=== PATIENT | male | born 1965 | race Caucasian/White ===

== ENCOUNTER 2018-07-19 17:04 | Inpatient (IN) | payer BC ==
[2018-07-19 17:04] VITALS: BMI 27.6
[2018-07-19] MEDS ORDERED: Nitroglycerin 2% Ointment Foilpak UD TOP STA (17:24)
[2018-07-19] MEDS ORDERED: Aspirin 325 mg EC Tablets PO STA (17:24)
--- NOTE | 2018-07-19 17:24 | C.PDOC ---
History Of Present Illness 53 y/o male with PMHx of HTN and hypercholesterolemia presents to the ED with new onset chest pain ongoing for 2-3 days. Initially patient states pain was intermittent, worsened with exertion, and resolved with rest. Today the pain is more persistent and intense. Currently chest pain is improve but still present. Otherwise patient denies MCMULLEN, SOB, palpitations, dizziness, sweats, leg swelling or tingling. Denies hx of prior chest pain episodes or known cardiac problems. States he is compliant with all medications. PMD: Casey Morales Time Seen by Provider: 07/19/18 17:18 Chief Complaint (Nursing): Chest Pain History Per: Patient History/Exam Limitations: no limitations Onset/Duration Of Symptoms: Days Current Symptoms Are (Timing): Still Present Exacerbating Factors: Exertion Past Medical History Reviewed: Historical Data, Nursing Documentation, Vital Signs Vital Signs: Last Vital Signs Temp 98.7 F 07/19/18 17:10 Pulse 79 07/19/18 17:10 Resp 18 07/19/18 17:10 BP 119/73 07/19/18 17:10 Pulse Ox 100 07/19/18 18:10 - Medical History PMH: HTN, Hypercholesterolemia Surgical History: Cholecystectomy - [facility] Procedures EXCIS LES TENDON SHEATH (02/02/14) Family History: States: No Known Family Hx - Social History Hx Tobacco Use: No (former) Hx Alcohol Use: Yes Hx Substance Use: No Review Of Systems Except As Marked, All Systems Reviewed And Found Negative. Constitutional: Negative for: Fever, Chills, Sweats Eyes: Negative for: Vision Change Cardiovascular: Positive for: Chest Pain. Negative for: Palpitations Respiratory: Negative for: Shortness of Breath, SOB with Excertion Gastrointestinal: Negative for: Nausea, Vomiting Musculoskeletal: Negative for: Leg Pain (or swelling) Neurological: Negative for: Weakness, Numbness, Headache, Dizziness Physical Exam - Physical Exam Appears: Non-toxic, No Acute Distress Skin: Normal Color, Warm, Dry Head: Atraumatic, Normacephalic Eye(s): bilateral: Normal Inspection, PERRL, EOMI Nose: Normal Oral Mucosa: Moist Neck: Supple Chest: Symmetrical, No Deformity, No Tenderness Cardiovascular: Rhythm Regular, No Murmur Respiratory: Normal Breath Sounds, No Rales, No Rhonchi, No Wheezing, Other ( NARD) Gastrointestinal/Abdominal: Soft, No Tenderness, No Distention Extremity: Bilateral: Atraumatic, Normal Color And Temperature, Normal ROM Pulses: Left Radial: Normal, Right Radial: Normal Neurological/Psych: Oriented x3, Normal Speech, Normal Cranial Nerves Gait: Steady ED Course And Treatment - Laboratory Results Result Diagrams: 07/19/18 17:37 07/19/18 17:37 ECG: Interpreted By Me ECG Rhythm: Sinus Rhythm Interpretation Of ECG: TWI III Rate From EC O2 Sat by Pulse Oximetry: 100 (RA) Pulse Ox Interpretation: Normal Progress - Re-Evaluation Re-evaluation Note: 07/19/18 18:08 VSS NAD. D/W P BAZZI CF PMD STATES TO ADMIT DR HUFF - Data Reviewed Data Reviewed: Lab, Diagnostic imaging, EKG, Old records Medical Decision Making Medical Decision Making: Impression: Chest pain, r/o ACS Initial Plan: --EKG --Troponin I --CMP --CBC --PTT/PT --Chest X-Ray --NTG 2% TOP --Aspirin 325 mg PO Disposition Counseled Patient/Family Regarding: Studies Performed, Diagnosis - Disposition Disposition: HOSPITALIZED Disposition Time: 18:09 Condition: STABLE Forms: [employer] (Luxembourgish) - POA Present On Arrival: None - Clinical Impression Clinical Impression: Unstable angina - Scribe Statement The provider has reviewed the documentation as recorded by the Jeyson Hilario Provider Attestation: All medical record entries made by the Rositaibe were at my direction and personally dictated by me. I have reviewed the chart and agree that the record accurately reflects my personal performance of the history, physical exam, medical decision making, and the department course for this patient. I have also personally directed, reviewed, and agree with the discharge instructions and disposition. Decision To Admit - Pt Status Changed To: Hospital Disposition Of: Inpatient - Admit Certification Admit to Inpatient:: After my assessment, the patient will require hospitalization for at least two midnights. This is because of the severity of symptoms shown, intensity of services needed, and/or the medical risk in this patient being treated as an outpatient. - InPatient: Physician Admission Certification: I certify that this patient requires 2 or more midnights of care for the following reason:: SEE NOTE - . Bed Request Type: Telemetry Admitting Physician: Ammon Huff Patient Diagnosis: Unstable angina
[2018-07-19 17:40] LABS: BASO % 0.7 % (0.0-2.0); EOS # 0.1 K/uL (0.0-0.7); EOS % 2.2 % (0.0-4.0); LYMPH # 1.6 K/uL (1.0-4.3); LYMPH % 32.8 % (20.0-40.0); MEAN CORPUSCULAR HEMOGLOBIN 29.3 pg (27.0-31.0); MEAN CORPUSCULAR HGB CONC 34.3 g/dL (33.0-37.0); MEAN PLATELET VOLUME 7.1 fL (7.2-11.7); MONO # 0.6 K/uL (0.0-0.8); MONO % 11.3 % (0.0-10.0); NEUT # 2.7 K/uL (1.8-7.0); RBC 4.08 Mil/uL (4.40-5.90); RED CELL DISTRIBUTION WIDTH 14.2 % (11.5-14.5)
[2018-07-19 17:42] LABS: MEAN CELL VOLUME 85.5 fL (80.0-94.0)
[2018-07-19 17:48] LABS: INR 1.2; PROTHROMBIN TIME 13.6 SECONDS (9.7-12.2)
[2018-07-19 17:57] LABS: ALB/GLOB RATIO 1.5 (1.0-2.1); ALBUMIN 4.6 g/dL (3.5-5.0); ALT/SGPT 29 U/L (21-72); AST/SGOT 24 U/L (17-59); BLOOD UREA NITROGEN 27 mg/dL (9-20); CALCIUM 9.2 mg/dl (8.6-10.4); GFR NON-AFRICAN AMERICAN > 60
[2018-07-19] MEDS ORDERED: Aspirin 325 mg EC Tablets PO ONE (18:05)
[2018-07-19] MEDS ORDERED: Nitroglycerin 2% Ointment Foilpak UD TOP ONE (18:06)
[2018-07-19] MEDS ORDERED: Enoxaparin 40 mg Syringe SC STA (18:09)
[2018-07-19] MEDS ORDERED: Enoxaparin 80 mg Syringe ONE (18:44)
--- NOTE | 2018-07-19 20:54 | CP.PCM.HP ---
<Ammon Huff P - Last Filed: 07/19/18 21:04> Meds Allergies/Adverse Reactions: Allergies Allergy/AdvReac Type Severity Reaction Status Date / Time No Known Allergies Allergy Verified 07/19/18 17:13 Results - Vital Signs Recent Vital Signs: Last Vital Signs Temp 98.4 F 07/19/18 20:47 Pulse 71 07/19/18 20:47 Resp 18 07/19/18 20:47 BP 118/72 07/19/18 20:47 Pulse Ox 97 07/19/18 20:47 - Labs Result Diagrams: 07/19/18 17:37 07/19/18 17:37 Labs: Laboratory Results - last 24 hr 07/19/18 07/19/18 07/19/18 17:37 17:37 17:37 WBC 5.0 RBC 4.08 L Hgb 12.0 Hct 34.9 L MCV 85.5 D MCH 29.3 MCHC 34.3 RDW 14.2 Plt Count 259 MPV 7.1 L Neut % (Auto) 53.0 Lymph % (Auto) 32.8 Gregg % (Auto) 11.3 H Eos % (Auto) 2.2 Baso % (Auto) 0.7 Neut # (Auto) 2.7 Lymph # (Auto) 1.6 Gregg # (Auto) 0.6 Eos # (Auto) 0.1 Baso # (Auto) 0.0 PT 13.6 H INR 1.2 APTT 31 Sodium 143 Potassium 3.7 Chloride 102 Carbon Dioxide 29 Anion Gap 15 BUN 27 H Creatinine 1.2 Est GFR ( Amer) > 60 Est GFR (Non-Af Amer) > 60 Random Glucose 114 H Calcium 9.2 Total Bilirubin 0.7 AST 24 ALT 29 Alkaline Phosphatase 53 Troponin I < 0.0120 Total Protein 7.6 Albumin 4.6 Globulin 3.0 Albumin/Globulin Ratio 1.5 Attending/Attestation - Attestation I have personally seen and examined this patient.: Yes I have fully participated in the care of the patient.: Yes I have reviewed all pertinent clinical information: Yes Notes (Text): 07/19/18 21:04 Chest pain not clearly related with exertion, was present about 6 hrs prior to presentation with negative trop and negative ekg at time of presentation but patient still having symptoms in ER, no worsening of pain with exertion today as per the patient, at the time of exam not sob, no pain, no tenderness, vitals stable. As per records in 2016 had positive exercise stress test, with reversible ischemia in inferior leads, as per the patient [place] [facility] and didn't need any intervention. Assessment Atypical CP, dd of gerd Plan Serial trop Records [place] [facility] about prior cath. See orders for detail DC nitro paste. Home meds to continue. <Harley Ling - Last Filed: 07/19/18 22:07> History of Present Illness - History of Present Illness History of Present Illness: PGY2 Medicine H+P for Dr. Huff A 53 year old male with a PMHx of HTN, GERD, and hypercholesterolemia presents to the ED with a complaint of chest pain. Patient woke up this morning chest pain free. After walking down 3 flights of stairs he started to experience a burning sensation substernally/epigastric region. He decided to walk back up stairs, without needing to stop to rest, and sat back down. The chest pain did not improve with rest so he decided to come into the emergency room for further evaluation. Patient has been experiencing intermittent chest pain for the past three days. The chest pain does not radiate and denies nausea, vomiting, diaphoresis, numbness or tingling. Patient has no other complaints at this time. Patient denies fevers, chills, fatigue, weakness, headaches, tachycardia, dyspnea, wheezing, sputum production, diarrhea, and sensory changes in his extremities. PMD: Dr. Morales PMH: HTN, GERD, and hypercholesterolemia PSH: cholecystectomy, abnormal stress test (2016), cardiac cath (2016 - normal per patient, will attempt to get records [place] [facility] Family: father at 92, mother living, no extensive cardiac history Social: denies tobacco, social alcohol and denies illicit drug use Allergies: NKDA Present on Admission - Present on Admission Any Indicators Present on Admission: No Review of Systems - Review of Systems All systems: reviewed and no additional remarkable complaints except - Constitutional Constitutional: As Per HPI - EENT Eyes: As Per HPI Ears: As Per HPI Nose/Mouth/Throat: As Per HPI - Cardiovascular Cardiovascular: As Per HPI - Respiratory Respiratory: As Per HPI - Gastrointestinal Gastrointestinal: As Per HPI - Genitourinary Genitourinary: As Per HPI - Musculoskeletal Musculoskeletal: As Per HPI - Integumentary Integumentary: As Per HPI - Neurological Neurological: As Per HPI - Psychiatric Psychiatric: As Per HPI - Endocrine Endocrine: As Per HPI - Hematologic/Lymphatic Hematologic: As Per HPI Past Patient History - Past Medical History & Family History Past Medical History?: Yes - Past Social History Smoking Status: Former Smoker - CARDIAC Hx Hypercholesterolemia: Yes Hx Hypertension: Yes - PSYCHIATRIC Hx Substance Use: No - SURGICAL HISTORY Hx Cholecystectomy: Yes - ANESTHESIA Hx Anesthesia: Yes Hx Anesthesia Reactions: No Hx Malignant Hyperthermia: No Physical Exam - Constitutional Appears: Non-toxic, No Acute Distress - Head Exam Head Exam: ATRAUMATIC, NORMOCEPHALIC - Eye Exam Eye Exam: EOMI, Normal appearance, PERRL Pupil Exam: NORMAL ACCOMODATION, PERRL - ENT Exam ENT Exam: Mucous Membranes Moist - Neck Exam Neck exam: Negative for: Lymphadenopathy - Respiratory Exam Respiratory Exam: Clear to Auscultation Bilateral, NORMAL BREATHING PATTERN. absent: Accessory Muscle Use, Rales, Rhonchi, Wheezes, Respiratory Distress - Cardiovascular Exam Cardiovascular Exam: REGULAR RHYTHM, RRR, +S1, +S2. absent: Gallop, JVD, Rubs - GI/Abdominal Exam GI & Abdominal Exam: Normal Bowel Sounds, Soft. absent: Distended, Firm, Guarding, Rebound, Rigid, Tenderness - Extremities Exam Extremities exam: Positive for: normal capillary refill, normal inspection, pedal pulses present. Negative for: calf tenderness, pedal edema - Back Exam Back exam: FULL ROM, NORMAL INSPECTION. absent: CVA tenderness (L), CVA tenderness (R), muscle spasm, paraspinal tenderness, tenderness, vertebral tenderness - Neurological Exam Neurological exam: Alert, Oriented x3 - Psychiatric Exam Psychiatric exam: Normal Affect, Normal Mood - Skin Skin Exam: Dry, Warm Results - Vital Signs Recent Vital Signs: Last Vital Signs Temp 98.7 F 07/19/18 17:10 Pulse 77 07/19/18 17:15 Resp 18 07/19/18 17:10 BP 112/73 07/19/18 17:15 Pulse Ox 100 07/19/18 18:15 - Labs Result Diagrams: 07/19/18 17:37 07/19/18 17:37 Labs: Laboratory Results - last 24 hr 07/19/18 07/19/18 07/19/18 17:37 17:37 17:37 WBC 5.0 RBC 4.08 L Hgb 12.0 Hct 34.9 L MCV 85.5 D MCH 29.3 MCHC 34.3 RDW 14.2 Plt Count 259 MPV 7.1 L Neut % (Auto) 53.0 Lymph % (Auto) 32.8 Gregg % (Auto) 11.3 H Eos % (Auto) 2.2 Baso % (Auto) 0.7 Neut # (Auto) 2.7 Lymph # (Auto) 1.6 Gregg # (Auto) 0.6 Eos # (Auto) 0.1 Baso # (Auto) 0.0 PT 13.6 H INR 1.2 APTT 31 Sodium 143 Potassium 3.7 Chloride 102 Carbon Dioxide 29 Anion Gap 15 BUN 27 H Creatinine 1.2 Est GFR ( Amer) > 60 Est GFR (Non-Af Amer) > 60 Random Glucose 114 H Calcium 9.2 Total Bilirubin 0.7 AST 24 ALT 29 Alkaline Phosphatase 53 Troponin I < 0.0120 Total Protein 7.6 Albumin 4.6 Globulin 3.0 Albumin/Globulin Ratio 1.5 Assessment & Plan - Assessment and Plan (Free Text) Plan: Atypical Chest Pain r/o ACS ECHO 05/08/16: normal EF, borderline to mild concentric LVH, Abnormal Exercise Stress Test on 05/08/16 * [place] [facility] which per patient was normal. * Will attempt to get records from [facility]. CXR 07/19/18: no acute disease EKG 07/19/18: NSR @87bpm, normal axis, no acute ST wave changes. * f/u repeat EKG Trop <0.0120; f/u JORGE q6h x2 Lipid Panel pending TSH/free T4 pending Hgb A1c pending Medications: * Aspirin 81mg PO daily * Zofran 4mg IVP q6h prn GERD Continue home medications * Protonix 40mg PO daily Hypertension controlled continue to monitor Continue home medications * Edarbyclor 40-12.5mg PO daily h/o Hypercholesterolemia Lipid Panel pending * will start treatment pending results Prophylactic Care Lovenox 40mg SC daily Protonix 40mg PO daily Case discussed with Dr. Refugio Souza Sushil PGY2
[2018-07-20 00:32] VITALS: RESP 20
[2018-07-20 01:03] LABS: CK-MB 0.94 ng/mL (0.0-3.38)
[2018-07-20 07:42] LABS: BASO % 0.7 % (0.0-2.0); EOS # 0.2 K/uL (0.0-0.7); HEMOGLOBIN 11.4 g/dL (12.0-18.0); LYMPH # 1.8 K/uL (1.0-4.3); MEAN CELL VOLUME 84.4 fL (80.0-94.0); MEAN CORPUSCULAR HEMOGLOBIN 29.5 pg (27.0-31.0); MEAN PLATELET VOLUME 7.6 fL (7.2-11.7); MONO # 0.5 K/uL (0.0-0.8); MONO % 10.5 % (0.0-10.0); NEUT # 2.1 K/uL (1.8-7.0); NEUT % 45.8 % (50.0-75.0); RBC 3.85 Mil/uL (4.40-5.90); RED CELL DISTRIBUTION WIDTH 14.5 % (11.5-14.5); WHITE BLOOD COUNT 4.6 K/uL (4.8-10.8)
[2018-07-20 08:17] LABS: ALB/GLOB RATIO 1.5 (1.0-2.1); ALBUMIN 4.1 g/dL (3.5-5.0); ALT/SGPT 30 U/L (21-72); AST/SGOT 22 U/L (17-59); BLOOD UREA NITROGEN 23 mg/dL (9-20); CALCIUM 9.2 mg/dl (8.6-10.4); GFR NON-AFRICAN AMERICAN > 60; HDL CHOLESTEROL 31 mg/dL (30-70)
[2018-07-20 08:24] LABS: CK-MB 1.75 ng/mL (0.0-3.38)
[2018-07-20 08:28] LABS: LDL CHOLESTEROL 98 mg/dL (0-129)
[2018-07-20] MEDS: Enoxaparin 40 mg Syringe SC SCH (09:04)
[2018-07-20] MEDS: Omega-3-Acid Ethyl Esters 1 GM Cap PO SCH ×2 (09:04→17:06)
[2018-07-20] MEDS: Pantoprazole 40 mg EC Tab PO SCH (09:04)
[2018-07-20] MEDS ORDERED: Midazolam 2 MG/2 ML VIAL ONE (09:55)
[2018-07-20] MEDS ORDERED: CHLORTHALIDONE PO SCH (10:00)
[2018-07-20] MEDS ORDERED: Ergocalciferol 50,000 Intl Units Cap PO SCH (10:00)
[2018-07-20] MEDS ORDERED: AZILSARTAN MED PO SCH (10:00)
--- NOTE | 2018-07-20 10:13 | RAD ---
Date of service: 07/19/2018 HISTORY: chest pain COMPARISON: Chest radiographs 07/19/2018. TECHNIQUE: Chest PA and lateral FINDINGS: LUNGS: No acute infiltrates bilaterally. Flattened hemidiaphragms are again reiterated with mild hyperlucency suggesting probable COPD. Clinically correlate further. Limited fibrotic changes reiterated right base. PLEURA: No significant pleural effusion identified. No pneumothorax apparent. CARDIOVASCULAR: Normal. OSSEOUS STRUCTURES: No significant abnormalities. VISUALIZED UPPER ABDOMEN: Normal. OTHER FINDINGS: None. IMPRESSION: Likely COPD reiterated. No acute cardiopulmonary disease appreciable in the interval.
--- NOTE | 2018-07-20 19:10 | CP.PCM.PN ---
<Davion Correia - Last Filed: 07/20/18 19:07> Subjective - Date & Time of Evaluation Date of Evaluation: 07/20/18 Time of Evaluation: 19:08 - Subjective Subjective: PGY-[address] Del Toro Patient seen and examined at bedside. No acute events overnight. Patient tolerating PO meals. Patient still complaining of burning/pressing subxiphoid chest pain. He denies any association with eating certain foods. Patient has no other complaints at this time. Plan to D/C tomorrow if no new complications arise. Objective - Vital Signs/Intake and Output Vital Signs (last 24 hours): Temp Pulse Resp BP Pulse Ox 97.9 F 61 20 120/73 96 07/20/18 16:00 07/20/18 16:00 07/20/18 16:00 07/20/18 16:00 07/20/18 16:00 - Medications Medications: Current Medications Acetaminophen (Tylenol 325mg Tab) 650 mg PO Q6 PRN PRN Reason: pain 4-7,fever>100.4 Last Admin: 07/20/18 07:48 Dose: 650 mg Aspirin (Ecotrin) 81 mg PO DAILY COUNT INCLUDES THE [facility] Last Admin: 07/20/18 09:04 Dose: 81 mg Chlorthalidone (Hygroton) 25 mg PO DAILY COUNT INCLUDES THE [facility] Enoxaparin Sodium (Lovenox) 40 mg SC DAILY COUNT INCLUDES THE [facility] Last Admin: 07/20/18 09:04 Dose: 40 mg Ergocalciferol (Drisdol 50,000 Intl Units Cap) 1 cap PO QWK COUNT INCLUDES THE [facility] Last Admin: 07/20/18 09:04 Dose: 1 cap Losartan Potassium (Cozaar) 50 mg PO DAILY COUNT INCLUDES THE [facility] Eulio-1-Runz Ethyl Esters (Lovaza) 1 gm PO BID COUNT INCLUDES THE [facility] Last Admin: 07/20/18 17:06 Dose: 1 gm Ondansetron HCl (Zofran Inj) 4 mg IVP Q6 PRN PRN Reason: Nausea/Vomiting Pantoprazole Sodium (Protonix Ec Tab) 40 mg PO DAILY COUNT INCLUDES THE [facility] Last Admin: 07/20/18 09:04 Dose: 40 mg Pneumococcal Polyvalent Vaccine (Pneumovax 23 Vaccine) 0.5 ml IM .ONCE ONE Stop: 07/21/18 10:01 - Labs Labs: 07/20/18 07:14 07/20/18 07:14 PT 13.6 SECONDS (9.7-12.2) H 07/19/18 17:37 INR 1.2 07/19/18 17:37 APTT 31 SECONDS (21-34) 07/19/18 17:37 - Constitutional Appears: Well, Non-toxic, No Acute Distress - Head Exam Head Exam: ATRAUMATIC, NORMAL INSPECTION - Eye Exam Eye Exam: EOMI, Normal appearance Pupil Exam: NORMAL ACCOMODATION - ENT Exam ENT Exam: Mucous Membranes Moist - Respiratory Exam Respiratory Exam: NORMAL BREATHING PATTERN - Cardiovascular Exam Cardiovascular Exam: REGULAR RHYTHM, +S1, +S2 - GI/Abdominal Exam GI & Abdominal Exam: Soft, Normal Bowel Sounds. absent: Tenderness, Rebound - Extremities Exam Extremities Exam: Full ROM, Normal Capillary Refill, Normal Inspection - Neurological Exam Neurological Exam: Alert, Awake, CN II-XII Intact, Normal Gait, Oriented x3 - Psychiatric Exam Psychiatric exam: Normal Affect, Normal Mood - Skin Skin Exam: Dry, Intact, Normal Color, Warm Assessment and Plan - Assessment and Plan (Free Text) Assessment: Atypical Chest Pain r/o ACS ECHO 05/08/16: normal EF, borderline to mild concentric LVH, Abnormal Exercise Stress Test on 05/08/16 * Patient cardiac cath at [facility] [place], which per patient was normal. * Will attempt to get records from [facility] [place] in morning. CXR 07/19/18: no acute disease EKG 07/19/18: NSR @87bpm, normal axis, no acute ST wave changes. * f/u repeat EKGs both showed normal axis, no acute ST wave changes. JORGE q6 NEGATIVE x3 Lipid Panel: TG 209, otherwise WNL TSH 1.06 Hgb A1c 5.5 Medications: * Aspirin 81mg PO daily * Zofran 4mg IVP q6h prn GERD Continue home medications * Protonix 40mg PO daily Hypertension controlled continue to monitor Continue home medications * Edarbyclor 40-12.5mg PO daily h/o Hypercholesterolemia Lipid Panel pending * will start treatment pending results Prophylactic Care Lovenox 40mg SC daily Protonix 40mg PO daily Plan to discharge home tomorrow morning Case discussed with Dr. Alverto Correia, PGY-1 <Augustine Del Toro - Last Filed: 07/21/18 20:10> Objective - Vital Signs/Intake and Output Vital Signs (last 24 hours): Temp Pulse Resp BP Pulse Ox 97.4 F L 73 20 139/86 98 07/21/18 07:00 07/21/18 09:21 07/21/18 07:00 07/21/18 09:21 07/21/18 07:00 - Labs Labs: 07/21/18 07:13 07/21/18 07:13 PT 13.6 SECONDS (9.7-12.2) H 07/19/18 17:37 INR 1.2 07/19/18 17:37 APTT 31 SECONDS (21-34) 07/19/18 17:37 Attending/Attestation - Attestation I have personally seen and examined this patient.: Yes I have fully participated in the care of the patient.: Yes I have reviewed all pertinent clinical information, including history, physical exam and plan: Yes Notes (Text): 07/21/18 20:09 This is a late entry. Care of this patient was gone over in detail with the resident on 07/20/18. Augustine Del Toro D.O.
--- NOTE | 2018-07-20 22:04 | CP.PCM.CON ---
History of Present Illness - History of Present Illness History of Present Illness: 53 M with hx of HTN and gastritis admitted with atypical chest pain A 53 year old male with a PMHx of HTN, GERD, and hypercholesterolemia presents to the ED with a complaint of chest pain. Patient woke up this morning chest pain free. After walking down 3 flights of stairs he started to experience a burning sensation substernally/epigastric region. He decided to walk back up stairs, without needing to stop to rest, and sat back down. The chest pain did not improve with rest so he decided to come into the emergency room for further evaluation. Patient has been experiencing intermittent chest pain for the past three days. The chest pain does not radiate and denies nausea, vomiting, diaphoresis, numbness or tingling. Patient has no other complaints at this time. Patient denies fevers, chills, fatigue, weakness, headaches, tachycardia, dyspnea, wheezing, sputum production, diarrhea, and sensory changes in his extremities. PMD: Dr. Morales PMH: HTN, GERD, and hypercholesterolemia PSH: cholecystectomy, abnormal stress test (2016), cardiac cath (2016 - normal per patient, [place] [facility] [place] Family: father at 92, mother living, no extensive cardiac history Social: denies tobacco, social alcohol and denies illicit drug use Allergies: NKDA Present on Admission - Present on Admission Any Indicators Present on Admission: No Review of Systems - Review of Systems All systems: reviewed and no additional remarkable complaints except - Constitutional Constitutional: As Per HPI - EENT Eyes: As Per HPI Ears: As Per HPI Nose/Mouth/Throat: As Per HPI - Cardiovascular Cardiovascular: As Per HPI - Respiratory Respiratory: As Per HPI - Gastrointestinal Gastrointestinal: As Per HPI - Genitourinary Genitourinary: As Per HPI - Musculoskeletal Musculoskeletal: As Per HPI - Integumentary Integumentary: As Per HPI - Neurological Neurological: As Per HPI - Psychiatric Psychiatric: As Per HPI - Endocrine Endocrine: As Per HPI - Hematologic/Lymphatic Hematologic: As Per HPI Physical Exam - Constitutional Appears: Non-toxic, No Acute Distress - Head Exam Head Exam: ATRAUMATIC, NORMOCEPHALIC - Eye Exam Eye Exam: EOMI, Normal appearance, PERRL Pupil Exam: NORMAL ACCOMODATION, PERRL - ENT Exam ENT Exam: Mucous Membranes Moist - Neck Exam Neck exam: Negative for: Lymphadenopathy - Respiratory Exam Respiratory Exam: Clear to Auscultation Bilateral, NORMAL BREATHING PATTERN. absent: Accessory Muscle Use, Rales, Rhonchi, Wheezes, Respiratory Distress - Cardiovascular Exam Cardiovascular Exam: REGULAR RHYTHM, RRR, +S1, +S2. absent: Gallop, JVD, Rubs - GI/Abdominal Exam GI & Abdominal Exam: Normal Bowel Sounds, Soft. absent: Distended, Firm, Guarding, Rebound, Rigid, Tenderness - Extremities Exam Extremities exam: Positive for: normal capillary refill, normal inspection, pedal pulses present. Negative for: calf tenderness, pedal edema - Back Exam Back exam: FULL ROM, NORMAL INSPECTION. absent: CVA tenderness (L), CVA tenderness (R), muscle spasm, paraspinal tenderness, tenderness, vertebral tenderness - Neurological Exam Neurological exam: Alert, Oriented x3 - Psychiatric Exam Psychiatric exam: Normal Affect, Normal Mood - Skin Skin Exam: Dry, Warm Past Patient History - Past Medical History & Family History Past Medical History?: Yes - Past Social History Smoking Status: Former Smoker - CARDIAC Hx Cardiac Disorders: Yes Hx Hypercholesterolemia: Yes Hx Hypertension: Yes - PULMONARY Hx Respiratory Disorders: No - NEUROLOGICAL Hx Neurological Disorder: No - HEENT Hx HEENT Problems: No - RENAL Hx Chronic Kidney Disease: No - ENDOCRINE/METABOLIC Hx Endocrine Disorders: No - HEMATOLOGICAL/ONCOLOGICAL Hx Blood Disorders: No - INTEGUMENTARY Hx Dermatological Problems: No - MUSCULOSKELETAL/RHEUMATOLOGICAL Hx Musculoskeletal Disorders: No Hx Falls: No - GASTROINTESTINAL Hx Gastrointestinal Disorders: No - GENITOURINARY/GYNECOLOGICAL Hx Genitourinary Disorders: No - PSYCHIATRIC Hx Psychophysiologic Disorder: No Hx Substance Use: No - SURGICAL HISTORY Hx Surgeries: Yes Hx Cholecystectomy: Yes - ANESTHESIA Hx Anesthesia: Yes Hx Anesthesia Reactions: No Hx Malignant Hyperthermia: No Meds Allergies/Adverse Reactions: Allergies Allergy/AdvReac Type Severity Reaction Status Date / Time No Known Allergies Allergy Verified 07/19/18 17:13 - Medications Medications: Current Medications Acetaminophen (Tylenol 325mg Tab) 650 mg PO Q6 PRN PRN Reason: pain 4-7,fever>100.4 Last Admin: 07/20/18 07:48 Dose: 650 mg Aspirin (Ecotrin) 81 mg PO DAILY [facility] Last Admin: 07/20/18 09:04 Dose: 81 mg Chlorthalidone (Hygroton) 25 mg PO DAILY [facility] Enoxaparin Sodium (Lovenox) 40 mg SC DAILY [facility] Last Admin: 07/20/18 09:04 Dose: 40 mg Ergocalciferol (Drisdol 50,000 Intl Units Cap) 1 cap PO QWK [facility] Last Admin: 07/20/18 09:04 Dose: 1 cap Losartan Potassium (Cozaar) 50 mg PO DAILY [facility] Oonoq-3-Tgnw Ethyl Esters (Lovaza) 1 gm PO BID [facility] Last Admin: 07/20/18 17:06 Dose: 1 gm Ondansetron HCl (Zofran Inj) 4 mg IVP Q6 PRN PRN Reason: Nausea/Vomiting Pantoprazole Sodium (Protonix Ec Tab) 40 mg PO DAILY [facility] Last Admin: 07/20/18 09:04 Dose: 40 mg Pneumococcal Polyvalent Vaccine (Pneumovax 23 Vaccine) 0.5 ml IM .ONCE ONE Stop: 07/21/18 10:01 Results - Vital Signs Recent Vital Signs: Last Vital Signs Temp 97.9 F 07/20/18 16:00 Pulse 61 07/20/18 16:00 Resp 20 07/20/18 16:00 BP 120/73 07/20/18 16:00 Pulse Ox 96 07/20/18 16:00 - Labs Result Diagrams: 07/20/18 07:14 07/20/18 07:14 Labs: Laboratory Results - last 24 hr 07/20/18 07/20/18 07/20/18 00:32 07:14 07:14 WBC 4.6 L RBC 3.85 L Hgb 11.4 L Hct 32.5 L MCV 84.4 MCH 29.5 MCHC 35.0 RDW 14.5 Plt Count 267 MPV 7.6 Neut % (Auto) 45.8 L Lymph % (Auto) 39.0 [place] % (Auto) 10.5 H Eos % (Auto) 4.0 Baso % (Auto) 0.7 Neut # (Auto) 2.1 Lymph # (Auto) 1.8 [place] # (Auto) 0.5 Eos # (Auto) 0.2 Baso # (Auto) 0.0 Sodium 142 Potassium 3.5 L Chloride 102 Carbon Dioxide 30 Anion Gap 13 BUN 23 H Creatinine 0.9 Est GFR ( Amer) > 60 Est GFR (Non-Af Amer) > 60 Random Glucose 111 H Hemoglobin A1c Calcium 9.2 Total Bilirubin 0.5 AST 22 ALT 30 Alkaline Phosphatase 53 Total Creatine Kinase 147 149 CK-MB (Mass) 0.94 1.75 Troponin I < 0.0120 < 0.0120 Total Protein 6.8 Albumin 4.1 Globulin 2.7 Albumin/Globulin Ratio 1.5 Triglycerides 209 H Cholesterol 176 LDL Cholesterol Direct 98 HDL Cholesterol 31 TSH 3rd Generation 1.06 07/20/18 07:14 WBC RBC Hgb Hct MCV MCH MCHC RDW Plt Count MPV Neut % (Auto) Lymph % (Auto) [place] % (Auto) Eos % (Auto) Baso % (Auto) Neut # (Auto) Lymph # (Auto) [place] # (Auto) Eos # (Auto) Baso # (Auto) Sodium Potassium Chloride Carbon Dioxide Anion Gap BUN Creatinine Est GFR ( Amer) Est GFR (Non-Af Amer) Random Glucose Hemoglobin A1c 5.5 Calcium Total Bilirubin AST ALT Alkaline Phosphatase Total Creatine Kinase CK-MB (Mass) Troponin I Total Protein Albumin Globulin Albumin/Globulin Ratio Triglycerides Cholesterol LDL Cholesterol Direct HDL Cholesterol TSH 3rd Generation Assessment & Plan - Assessment and Plan (Free Text) Assessment: Atypical Chest Pain r/o ACS Patient recent cath shows normal coronaries and normal EF No further cardiac work up needed Non cardiac chest pain GERD Continue home medications * Protonix 40mg PO daily Hypertension controlled continue to monitor Continue home medications * Edarbyclor 40-12.5mg PO daily h/o Hypercholesterolemia Lipid Panel pending * will start treatment pending results Prophylactic Care Lovenox 40mg SC daily Protonix 40mg PO daily I will sign off. Please re consult if needed
[2018-07-21 07:37] LABS: BASO % 0.7 % (0.0-2.0); EOS # 0.1 K/uL (0.0-0.7); EOS % 3.2 % (0.0-4.0); HEMOGLOBIN 11.8 g/dL (12.0-18.0); LYMPH # 1.8 K/uL (1.0-4.3); LYMPH % 40.8 % (20.0-40.0); MEAN CELL VOLUME 84.5 fL (80.0-94.0); MEAN CORPUSCULAR HGB CONC 35.5 g/dL (33.0-37.0); MEAN PLATELET VOLUME 7.9 fL (7.2-11.7); MONO # 0.5 K/uL (0.0-0.8); MONO % 11.1 % (0.0-10.0); NEUT % 44.2 % (50.0-75.0); NRBC % 0.1 % (0.0-2.0); RBC 3.92 Mil/uL (4.40-5.90); RED CELL DISTRIBUTION WIDTH 13.9 % (11.5-14.5); WHITE BLOOD COUNT 4.4 K/uL (4.8-10.8)
[2018-07-21 07:43] VITALS: TEMP 97.4; O2SAT 98
[2018-07-21 07:56] LABS: ALB/GLOB RATIO 1.4 (1.0-2.1); ALBUMIN 4.1 g/dL (3.5-5.0); ALT/SGPT 22 U/L (21-72); AST/SGOT 15 U/L (17-59); BLOOD UREA NITROGEN 25 mg/dL (9-20); CALCIUM 9.2 mg/dl (8.6-10.4); GFR NON-AFRICAN AMERICAN > 60
--- NOTE | 2018-07-21 08:07 | CP.PCM.PN ---
Subjective - Date & Time of Evaluation Date of Evaluation: 07/21/18 Time of Evaluation: 07:45 - Subjective Subjective: Hospitalist Progress Note Patient was seen and examined at 7:45 AM 07/21/18 550 A Upon FULL ROS NO dysphagia/odynopahgia NO soreness in throat NO cough NO sinus/nasal congestion NO fever/chills NO muscle aches/pains NO joint pain NO chest pain/palpations NO SOB NO abdominal pain NO n/v/d/c NO burning pain with urination NO BARRY NO lightheadedness/dizziness NO paresthesias Exam: General: AAOX3, NAD HEENT: NCA, EOMI, PERRLA, NO cervical/supraclavicular/submandibular lymphadenopathy, NO pharyngeal erythema/exudate, Nasal Turbinates are nonerythematous/nonedematous, Oral Mucosa is moist Cardio: NS1 and NS2, NO M/R/G Resp: CTA B/L, NO R/R/W GI: BSx4, Soft, NT, NO HSM, NO guarding/rebound tenderness Ext: Pulses are strong and equal, Capillary Refill is 2 seconds, NO edema Neuro: CN II through XII are grossly intact Assessments: 1). Atypical Chest Pain: was located in the epigastric area, nonradiating and now has resolved. Troponin x 3. EKG unremarkable. Seen by Human Relations Teacher Dr. Magdaleno and no further cardiac workup needed. Instructed to follow up with his outpatient Human Relations Teacher. Dr. Dowell whom he has not seen in 12 months 2). GERD: had endoscopy roughly three years ago as per patient and noted hiatal hernia. Instructed him on 07/20/18 and today to make sure to follow up with his GI Dr. Vera upon discharge. Also instructed to discontinue his 3 cups of coffee/day and instructed not to recline/lay down for at least 1 hour after meals 3). HTN: Continue Azilsartan/Chlorthalidone 4). HLD: Continue Vascepa 5). Hx Low Vitamin D: Continue Vit D Patient's presenting complaints have resolved: likely secondary to GERD Vitals are stable Follow up explained to patient Stable for discharge The following instructions were gone over with the patient and a copy will need to be provided to patient upon discharge: 1). Schedule an appointment with your primary care physician Dr. Morales to take place in the next 7 days. You will need to have your Vitamin D Level rechecked through his office. 2). Through Dr. Morales's office obtain referrals for the following doctors and schedule appointments with them: Gastroenterology Dr. Vera for Endoscopy and re-evaluation of your GERD/Hernia Cardiology Dr. Dowell for your Cardiac history 3). The following prescriptions should be filled by you on your way home from the hospital. Please use as directed: Aspirin 81 mg, 1 tablet by mouth 1 time a day (8 AM), Dispense #30, NO refills Vascepa 1 gram, 1 tablet by mouth 1 time a day (8 AM), Dispense #30, NO refills Vitamin D 50,000 Units, 1 tablet by mouth once a week on Wednesdays (8 AM), Dispense #4, NO refills Protonix 40 mg, 1 tablet by mouth 1 time a day (8 AM), Dispense #30, NO refills Azilsartan/Chlorthalidone 40/12.5 mg, 1 tablet by mouth 1 time a day (8 AM), Dispense #30, NO refills 4). You must STOP drinking any drinks with Caffeine in it. After every meal DO NOT lay down or recline for at least 1 hour. These measures will help reduce acid reflux. 5). Please take care and be well. Augustine Del Toro D.O. Objective - Vital Signs/Intake and Output Vital Signs (last 24 hours): Temp Pulse Resp BP Pulse Ox 97.4 F L 70 20 112/66 98 07/21/18 07:00 07/21/18 07:00 07/21/18 07:00 07/21/18 07:00 07/21/18 07:00 - Medications Medications: Current Medications Acetaminophen (Tylenol 325mg Tab) 650 mg PO Q6 PRN PRN Reason: pain 4-7,fever>100.4 Last Admin: 07/20/18 07:48 Dose: 650 mg Aspirin (Ecotrin) 81 mg PO DAILY [facility] Last Admin: 07/20/18 09:04 Dose: 81 mg Chlorthalidone (Hygroton) 25 mg PO DAILY [facility] Enoxaparin Sodium (Lovenox) 40 mg SC DAILY [facility] Last Admin: 07/20/18 09:04 Dose: 40 mg Ergocalciferol (Drisdol 50,000 Intl Units Cap) 1 cap PO QWK [facility] Last Admin: 07/20/18 09:04 Dose: 1 cap Losartan Potassium (Cozaar) 50 mg PO DAILY [facility] Rncyr-9-[id number] Ethyl Esters (Lovaza) 1 gm PO BID [facility] Last Admin: 07/20/18 17:06 Dose: 1 gm Ondansetron HCl (Zofran Inj) 4 mg IVP Q6 PRN PRN Reason: Nausea/Vomiting Pantoprazole Sodium (Protonix Ec Tab) 40 mg PO DAILY [facility] Last Admin: 07/20/18 09:04 Dose: 40 mg Pneumococcal Polyvalent Vaccine (Pneumovax 23 Vaccine) 0.5 ml IM .ONCE ONE Stop: 07/21/18 10:01 - Labs Labs: 07/21/18 07:13 07/20/18 07:14 PT 13.6 SECONDS (9.7-12.2) H 07/19/18 17:37 INR 1.2 07/19/18 17:37 APTT 31 SECONDS (21-34) 07/19/18 17:37
[2018-07-21] MEDS: Omega-3-Acid Ethyl Esters 1 GM Cap PO SCH (09:16)
--- NOTE | 2018-07-21 09:16 | CARD ---
APPROVED REPORT Date of service: 07/19/2018 EKG Measurement Heart [id number] NM [id number] <Conclusion> Normal sinus rhythm Normal ECG
[2018-07-21] MEDS: Pantoprazole 40 mg EC Tab PO SCH (09:17)
[2018-07-21] MEDS: Enoxaparin 40 mg Syringe SC SCH (09:17)
[2018-07-21 09:22] VITALS: BP 139/86; PULSE 73
[2018-07-21] MEDS ORDERED: Pneumococcal 23-Valent Vaccine IM ONE (10:00)
--- NOTE | 2018-07-21 10:00 | CP.PCM.DIS ---
<Davion Correia - Last Filed: 07/21/18 09:57> Provider - Provider Date of Admission: 07/19/18 19:38 Attending physician: Ammon Huff MD Time Spent in preparation of Discharge (in minutes): 45 Diagnosis - Discharge Diagnosis (1) Non-cardiac chest pain Status: Acute (2) GERD (gastroesophageal reflux disease) Status: Chronic Hospital Course - Lab Results Lab Results: Most Recent Lab Values WBC 4.4 K/uL (4.8-10.8) L 07/21/18 07:13 RBC 3.92 Mil/uL (4.40-5.90) L 07/21/18 07:13 Hgb 11.8 g/dL (12.0-18.0) L 07/21/18 07:13 Hct 33.2 % (35.0-51.0) L 07/21/18 07:13 MCV 84.5 fL (80.0-94.0) 07/21/18 07:13 MCH 30.0 pg (27.0-31.0) 07/21/18 07:13 MCHC 35.5 g/dL (33.0-37.0) 07/21/18 07:13 RDW 13.9 % (11.5-14.5) 07/21/18 07:13 Plt Count 269 K/uL (130-400) 07/21/18 07:13 MPV 7.9 fL (7.2-11.7) 07/21/18 07:13 Neut % (Auto) 44.2 % (50.0-75.0) L 07/21/18 07:13 Lymph % (Auto) 40.8 % (20.0-40.0) H 07/21/18 07:13 Noble % (Auto) 11.1 % (0.0-10.0) H 07/21/18 07:13 Eos % (Auto) 3.2 % (0.0-4.0) 07/21/18 07:13 Baso % (Auto) 0.7 % (0.0-2.0) 07/21/18 07:13 Neut # (Auto) 2.0 K/uL (1.8-7.0) 07/21/18 07:13 Lymph # (Auto) 1.8 K/uL (1.0-4.3) 07/21/18 07:13 Noble # (Auto) 0.5 K/uL (0.0-0.8) 07/21/18 07:13 Eos # (Auto) 0.1 K/uL (0.0-0.7) 07/21/18 07:13 Baso # (Auto) 0.0 K/uL (0.0-0.2) 07/21/18 07:13 PT 13.6 SECONDS (9.7-12.2) H 07/19/18 17:37 INR 1.2 07/19/18 17:37 APTT 31 SECONDS (21-34) 07/19/18 17:37 Sodium 141 mmol/L (132-148) 07/21/18 07:13 Potassium 3.6 mmol/L (3.6-5.2) 07/21/18 07:13 Chloride 103 mmol/L (98-107) 07/21/18 07:13 Carbon Dioxide 28 mmol/L (22-30) 07/21/18 07:13 Anion Gap 14 (10-20) 07/21/18 07:13 BUN 25 mg/dL (9-20) H 07/21/18 07:13 Creatinine 0.9 mg/dL (0.8-1.5) 07/21/18 07:13 Est GFR ( Amer) > 60 07/21/18 07:13 Est GFR (Non-Af Amer) > 60 07/21/18 07:13 Random Glucose 104 mg/dL (75-110) 07/21/18 07:13 Hemoglobin A1c 5.5 % (4.2-6.5) 07/20/18 07:14 Calcium 9.2 mg/dl (8.6-10.4) 07/21/18 07:13 Total Bilirubin 0.6 mg/dL (0.2-1.3) 07/21/18 07:13 AST 15 U/L (17-59) L D 07/21/18 07:13 ALT 22 U/L (21-72) 07/21/18 07:13 Alkaline Phosphatase 50 U/L (38-126) 07/21/18 07:13 Total Creatine Kinase 149 U/L (55-170) 07/20/18 07:14 CK-MB (Mass) 1.75 ng/mL (0.0-3.38) 07/20/18 07:14 Troponin I < 0.0120 ng/mL (0.00-0.120) 07/20/18 07:14 Total Protein 7.1 g/dL (6.3-8.3) 07/21/18 07:13 Albumin 4.1 g/dL (3.5-5.0) 07/21/18 07:13 Globulin 3.0 gm/dL (2.2-3.9) 07/21/18 07:13 Albumin/Globulin Ratio 1.4 (1.0-2.1) 07/21/18 07:13 Triglycerides 209 mg/dL (0-149) H 07/20/18 07:14 Cholesterol 176 mg/dL (0-199) 07/20/18 07:14 LDL Cholesterol Direct 98 mg/dL (0-129) 07/20/18 07:14 HDL Cholesterol 31 mg/dL (30-70) 07/20/18 07:14 TSH 3rd Generation 1.06 mIU/L (0.46-4.68) 07/20/18 07:14 - Hospital Course Hospital Course: HPI: Patient is a 53 year old male with a PMHx of HTN, GERD, and hypercholesterolemia who presented to the ED with a complaint of chest pain. Patient states he woke up in the morning pain free but after walking down 3 flights of stairs he started to experience a burning sensation substernally/ epigastric region. He decided to walk back upstairs, without needing to stop to rest, and sat back down. The chest pain did not improve with rest so he decided to come into the ER for further evaluation. Patient has been experiencing intermittent chest pain for the past three days. The chest pain does not radiate and denies nausea, vomiting, diaphoresis, numbness or tingling. Patient has not other complaints at this time. Patient denies fevers, chills, fatigue, weakness, headaches, tachycardia, dyspnea, wheezing, sputum production, diarrhea , and sensory changes in his extremities. Patient notes he had a catheterization done at [facility] [place] in 2016 that was within normal limits. He also had an endoscopy done by GI 3 years ago at which time he was diagnosed with a hernia. He has not required any further treatment for this hernia diagnosis since. PMD: Dr. Morales PMH: HTN, GERD, and hypercholesterolemia PSH: cholecystectomy, abnormal stress test (2016), cardiac cath (2016 - normal per patient, will attempt to get records from [facility] [place]) Family: father at 92, mother living, no extensive cardiac history Social: denies tobacco, social alcohol and denies illicit drug use Allergies: [facility] Hospital Course: Patient was admitted on 07/19/2018 for chest pain r/o ACS. CXR 07/19/2018 - Likely COPD reiterated; no acute cardiopulmonary disease appreciable in the interval. EKG/JORGE q6h x3 all WNL; Lipid panel 07/20/2018 WNL except for TGs which were elevated at 209, TSH WNL, and Hgb A1C 5.5. Patient treated with Cozaar 50 mg PO and Chlorthalidone 25 mg PO for history of HTN Cardiology consult placed to Dr. Magdaleno - Diagnosis of non-cardiac chest pain Plan: The following instructions were gone over with the patient and a copy will need to be provided to patient upon discharge: 1). Schedule an appointment with your primary care physician Dr. Morales to take place in the next 7 days. You will need to have your Vitamin D Level rechecked through his office. 2). Through Dr. Morales's office obtain referrals for the following doctors and schedule appointments with them: Gastroenterology Dr. Vera for Endoscopy and re-evaluation of your GERD/Hernia Cardiology Dr. Dowell for your Cardiac history 3). The following prescriptions should be filled by you on your way home from the hospital. Please use as directed: Aspirin 81 mg, 1 tablet by mouth 1 time a day (8 AM), Dispense #30, NO refills Vascepa 1 gram, 1 tablet by mouth 1 time a day (8 AM), Dispense #30, NO refills Vitamin D 50,000 Units, 1 tablet by mouth once a week on Wednesdays (8 AM), Dispense #4, NO refills Protonix 40 mg, 1 tablet by mouth 1 time a day (8 AM), Dispense #30, NO refills Azilsartan/Chlorthalidone 40/12.5 mg, 1 tablet by mouth 1 time a day (8 AM), Dispense #30, NO refills 4). You must STOP drinking any drinks with Caffeine in it. After every meal DO NOT lay down or recline for at least 1 hour. These measures will help reduce acid reflux. 5). Please take care and be well. Discharge Exam - Head Exam Head Exam: ATRAUMATIC, NORMAL INSPECTION - Eye Exam Eye Exam: EOMI, Normal appearance Pupil Exam: NORMAL ACCOMODATION, PERRL - Respiratory Exam Respiratory Exam: NORMAL BREATHING PATTERN, UNREMARKABLE. absent: Respiratory Distress - Cardiovascular Exam Cardiovascular Exam: REGULAR RHYTHM, +S1, +S2. absent: JVD, RRR - GI/Abdominal Exam GI & Abdominal Exam: Normal Bowel Sounds, Unremarkable. absent: Distended, Firm , Guarding - Extremities Exam Extremities exam: full ROM, normal capillary refill, normal inspection, pedal pulses present - Neurological Exam Neurological exam: Alert, CN II-XII Intact, Normal Gait, Oriented x3 - Psychiatric Exam Psychiatric exam: Normal Affect, Normal Mood - Skin Skin Exam: Dry, Intact, Normal Color, Warm Discharge Plan - Discharge Medications Prescriptions: Aspirin [Ecotrin] 81 mg PO DAILY #30 tabec Azilsartan Med/Chlorthalidone [Edarbyclor 40-12.5 mg Tablet] 1 tab PO DAILY #30 tablet Ergocalciferol (Vitamin D2) [Vitamin D2] 50,000 unit PO DAILY #4 capsule Icosapent Ethyl [Vascepa] 1 gm PO DAILY #30 capsule Pantoprazole [Protonix EC Tab] 40 mg PO DAILY #30 ect - Follow Up Plan Condition: STABLE Disposition: HOME/ ROUTINE Instructions: High Blood Pressure (DC), Angina (DC), Acid Reflux ( Gastroesophageal Reflux Disease) in Adults Additional Instructions: The following instructions were gone over with the patient and a copy will need to be provided to patient upon discharge: 1). Schedule an appointment with your primary care physician Dr. Morales to take place in the next 7 days. You will need to have your Vitamin D Level rechecked through his office. 2). Through Dr. Morales's office obtain referrals for the following doctors and schedule appointments with them: Gastroenterology Dr. Vera for Endoscopy and re-evaluation of your GERD/Hernia Cardiology Dr. Dowell for your Cardiac history 3). The following prescriptions should be filled by you on your way home from the hospital. Please use as directed: Aspirin 81 mg, 1 tablet by mouth 1 time a day (8 AM), Dispense #30, NO refills Vascepa 1 gram, 1 tablet by mouth 1 time a day (8 AM), Dispense #30, NO refills Vitamin D 50,000 Units, 1 tablet by mouth once a week on Wednesdays (8 AM), Dispense #4, NO refills Protonix 40 mg, 1 tablet by mouth 1 time a day (8 AM), Dispense #30, NO refills Azilsartan/Chlorthalidone 40/12.5 mg, 1 tablet by mouth 1 time a day (8 AM), Dispense #30, NO refills 4). You must STOP drinking any drinks with Caffeine in it. After every meal DO NOT lay down or recline for at least 1 hour. These measures will help reduce acid reflux. 5). Please take care and be well. Las siguientes instrucciones se analizaron con el paciente y se deber proporcionar mirela copia al paciente al momento del dequan: 1). Programe mirela delicia con pitts mdico de atencin primaria, el Dr. Morales, para que se realice en los prximos 7 earl. Deber volver a controlar pitts nivel de vitamina D a travs de pitts consultorio. 2). A travs de la oficina del Dr. Morales obtener referencias para los siguientes mdicos y programar citas con ellos: Gastroenterologa Dr. Vera para Endoscopia y re-evaluacin de pitts ERGE / Hernia Cardiologa Dr. Dowell para pitts historia cardaca 3). Las siguientes recetas deben ser llenadas por usted en pitts candida a casa desde el hospital. Por favor use sal se indica: Aspirina 81 mg, 1 tableta por va oral 1 vez al da (8 AM), Dispensa # 30, NO recargas Vascepa 1 gramo, 1 tableta por va oral 1 vez al da (8 AM), Dispensa # 30, NO recambios Vitamina D 50,000 Unidades, 1 tableta por va oral mirela vez a la semana los mi rcoles (8 AM), Dispensa # 4, NO recambios Protonix 40 mg, 1 tableta por va oral 1 vez al da (8 AM), Dispensa # 30, NO vuelve a llenar Azilsartan / Chlorthalidone 40 / 12.5 mg, 1 tableta por va oral 1 vez al da ( 8 AM), Dispensa # 30, NO vuelve a llenar 4). Debe dejar de roxanne bebidas con cafena. Despus de cada comida, NO se recueste ni se recline sulma al menos 1 hora. Estas medidas ayudarn a reducir el reflujo cido. 5). Por favor cudate y s jacek <Augustine Del Toro - Last Filed: 07/21/18 20:08> Provider - Provider Date of Admission: 07/19/18 19:38 Attending physician: Ammon Huff MD Time Spent in preparation of Discharge (in minutes): 40 Hospital Course - Lab Results Lab Results: Most Recent Lab Values WBC 4.4 K/uL (4.8-10.8) L 07/21/18 07:13 RBC 3.92 Mil/uL (4.40-5.90) L 07/21/18 07:13 Hgb 11.8 g/dL (12.0-18.0) L 07/21/18 07:13 Hct 33.2 % (35.0-51.0) L 07/21/18 07:13 MCV 84.5 fL (80.0-94.0) 07/21/18 07:13 MCH 30.0 pg (27.0-31.0) 07/21/18 07:13 MCHC 35.5 g/dL (33.0-37.0) 07/21/18 07:13 RDW 13.9 % (11.5-14.5) 07/21/18 07:13 Plt Count 269 K/uL (130-400) 07/21/18 07:13 MPV 7.9 fL (7.2-11.7) 07/21/18 07:13 Neut % (Auto) 44.2 % (50.0-75.0) L 07/21/18 07:13 Lymph % (Auto) 40.8 % (20.0-40.0) H 07/21/18 07:13 Noble % (Auto) 11.1 % (0.0-10.0) H 07/21/18 07:13 Eos % (Auto) 3.2 % (0.0-4.0) 07/21/18 07:13 Baso % (Auto) 0.7 % (0.0-2.0) 07/21/18 07:13 Neut # (Auto) 2.0 K/uL (1.8-7.0) 07/21/18 07:13 Lymph # (Auto) 1.8 K/uL (1.0-4.3) 07/21/18 07:13 Noble # (Auto) 0.5 K/uL (0.0-0.8) 07/21/18 07:13 Eos # (Auto) 0.1 K/uL (0.0-0.7) 07/21/18 07:13 Baso # (Auto) 0.0 K/uL (0.0-0.2) 07/21/18 07:13 PT 13.6 SECONDS (9.7-12.2) H 07/19/18 17:37 INR 1.2 07/19/18 17:37 APTT 31 SECONDS (21-34) 07/19/18 17:37 Sodium 141 mmol/L (132-148) 07/21/18 07:13 Potassium 3.6 mmol/L (3.6-5.2) 07/21/18 07:13 Chloride 103 mmol/L (98-107) 07/21/18 07:13 Carbon Dioxide 28 mmol/L (22-30) 07/21/18 07:13 Anion Gap 14 (10-20) 07/21/18 07:13 BUN 25 mg/dL (9-20) H 07/21/18 07:13 Creatinine 0.9 mg/dL (0.8-1.5) 07/21/18 07:13 Est GFR ( Amer) > 60 07/21/18 07:13 Est GFR (Non-Af Amer) > 60 07/21/18 07:13 Random Glucose 104 mg/dL (75-110) 07/21/18 07:13 Hemoglobin A1c 5.5 % (4.2-6.5) 07/20/18 07:14 Calcium 9.2 mg/dl (8.6-10.4) 07/21/18 07:13 Total Bilirubin 0.6 mg/dL (0.2-1.3) 07/21/18 07:13 AST 15 U/L (17-59) L D 07/21/18 07:13 ALT 22 U/L (21-72) 07/21/18 07:13 Alkaline Phosphatase 50 U/L (38-126) 07/21/18 07:13 Total Creatine Kinase 149 U/L (55-170) 07/20/18 07:14 CK-MB (Mass) 1.75 ng/mL (0.0-3.38) 07/20/18 07:14 Troponin I < 0.0120 ng/mL (0.00-0.120) 07/20/18 07:14 Total Protein 7.1 g/dL (6.3-8.3) 07/21/18 07:13 Albumin 4.1 g/dL (3.5-5.0) 07/21/18 07:13 Globulin 3.0 gm/dL (2.2-3.9) 07/21/18 07:13 Albumin/Globulin Ratio 1.4 (1.0-2.1) 07/21/18 07:13 Triglycerides 209 mg/dL (0-149) H 07/20/18 07:14 Cholesterol 176 mg/dL (0-199) 07/20/18 07:14 LDL Cholesterol Direct 98 mg/dL (0-129) 07/20/18 07:14 HDL Cholesterol 31 mg/dL (30-70) 07/20/18 07:14 TSH 3rd Generation 1.06 mIU/L (0.46-4.68) 07/20/18 07:14 Attending/Attestation - Attestation I have personally seen and examined this patient.: Yes I have fully participated in the care of the patient.: Yes I have reviewed all pertinent clinical information, including history, physical exam and plan: Yes
--- NOTE | 2018-07-21 16:47 | CARD ---
APPROVED REPORT Date of service: 07/20/2018 EKG Measurement Heart [id number] <Conclusion> Normal sinus rhythm Normal Electrocardiogram
== END 2018-07-21 10:10 | disposition home or self-care (01) | DRG 313 ==
LOC: C.ER 17:04 → C.9E 19:38 → C.5S 20:56
PROVIDERS: ADMIT Internal Medicine; ATTEND Internal Medicine
DX: R07.89 Other chest pain (principal); K21.9 Gastro-esophageal reflux disease without esophagitis; E78.00 Pure hypercholesterolemia, unspecified; I10 Essential (primary) hypertension; J44.9 Chronic obstructive pulmonary disease, unspecified; Z87.891 Personal history of nicotine dependence; Z90.49 Acquired absence of other specified parts of digestive tract